=== PATIENT | male | born 1985 | race Caucasian/White ===

== ENCOUNTER 2019-03-05 17:10 | Emergency (ER) | payer MEDICAID ==
[~2019-03-05] VITALS: Ht 175.3 cm; Wt 74.5 kg
[2019-03-05 17:20] VITALS: BP 170/100; PULSE 61; RESP 18; Ht 175.3 cm; Wt 74.5 kg
[2019-03-05] MEDS ORDERED: CEPH-443 PO (17:33)
[2019-03-05] MEDS ORDERED: SULF1TAB31 PO (17:33)
--- NOTE | 2019-03-05 17:39 | ERD ---
ER Documentation Chief Complaint Chief Complaint abcess on rt leg x 1 week , per pt mosquito bite HPI 33-year-old male presents with skin lesion on his right anterior knee for the last week. Started with mosquito bites that he scratched. The last few days has become more red with discharge. He did try squeezing it at home with minimal pus. Denies fevers, vomiting, shortness of breath. ROS All systems reviewed and are negative except as per history of present illness. Medications Home Meds Active Scripts Cephalexin* (Keflex*) 500 Mg Capsule, 500 MG PO QID for 7 Days, CAP Prov:ANIBAL HI MD 03/05/19 Sulfamethoxazole/Trimethoprim* (Bactrim Ds* Tablet) 1 Each Tablet, 1 TAB PO BID for 7 Days, #14 TAB Prov:ANIBAL HI MD 03/05/19 FmHx Family History: No diabetes, No coronary disease, No other Physical Exam Vitals Vital Signs Date Temp Pulse Resp B/P (MAP) Pulse Ox O2 O2 Flow FiO2 Time Delivery Rate 03/05/19 97.0 61 18 170/100 100 17:20 (123) Physical Exam Const: No acute distress Head: Atraumatic Eyes: Normal Conjunctiva ENT: Normal External Ears, Nose and Mouth. Neck: Full range of motion. No meningismus. Resp: Clear to auscultation bilaterally Cardio: Regular rate and rhythm, no murmurs Abd: Soft, non tender, non distended. Normal bowel sounds Skin: No petechiae or rashes. Draining posterior with some surrounding redness approximately 2.5 cm on right anterior knee. No effusion, deformities patient is amatory without discomfort. Back: No midline or flank tenderness Ext: No cyanosis, or edema Neur: Awake and alert Psych: Normal Mood and Affect Procedures/MDM Patient presents with signs and symptoms of a small abscess or actively draining infected insect bite on the right prepatellar area. He has no signs of septic arthritis, history to suggest fracture, dislocation, excising fasciitis, DVT, SIRS criteria or sepsis. He will be treated with Bactrim, Keflex, recommendations for wound care, return precautions for worsening redness, fevers, new worsening symptoms. The patient was stable with no new complaints during the ER course. Clinically, there is no current evidence to suggest meningitis, sepsis, acute abdomen, pneumonia, stroke, acute coronary syndrome, pulmonary embolism, aortic dissection or any other emergent condition appearing to require further evaluation or hospitalization. Patient counseled regarding my diagnostic impression and care plan. Prior to discharge all questions answered. Pt agrees with treatment plan and understands strict return precautions. Pt is instructed to follow up with primary care provider within 24- 48 hours. Precautionary instructions provided including instructions to return to the ER if not improving or for any worsening or changing symptoms or concerns. Disclaimer: Inadvertent spelling and grammatical errors are likely due to EHR/dictation software use and do not reflect on the overall quality of patient care. Also, please note that the electronic time recorded on this note does not necessarily reflect the actual time of the patient encounter. Departure Diagnosis: Primary Impression: Infected bite wound Condition: Stable Patient Instructions: Abscess, Antiobiotic Treatment Only Additional Instructions: Apply warm compresses at home. Recheck for fevers, worsening redness, new worsening symptoms. ANIBAL HI MD Mar 05, 2019 17:39
== END 2019-03-05 17:37 | disposition home or self-care (01) ==
LOC: FTE 17:10 → E/R 17:37
DX: S80.261A Insect bite (nonvenomous), right knee, initial encounter (principal); L08.9 Local infection of the skin and subcutaneous tissue, unspecified; W57.XXXA Bitten or stung by nonvenomous insect and other nonvenomous arthropods, initial encounter; Y92.9 Unspecified place or not applicable
CPT/HCPCS: 99283